=== PATIENT | female | born 1995 | race Caucasian/White ===

== ENCOUNTER 2024-08-10 00:35 | Day surgery (SDC) | payer BC, SELFPAY ==
[2024-08-06 13:30] VITALS: BMI 22.0
--- NOTE | 2024-08-06 13:37 | PC.NURSE ---
Report to the Outpatient Waiting Room, entrance under the green pavilion located off [facility], at time _1pm_ on date _[id number]_. Planned Procedure Time: _3pm_.? Time changes happen often and if your time is changed the preop area will call you the afternoon before. - You and your visitor will be asked to self-screen and do not enter if you have any COVID symptoms. Please call surgeon if you need to reschedule. - A mask is optional within the hospital at this time. Patients may have clear liquids (water, carbonated beverages, clear teas, apple juice) until 3 hours prior to surgery with a maximum of 20 ounces. - No food from midnight until time of surgery and no smoking, or chewing tobacco (or any form of nicotine). No chewing gum, candy or mints. Take only the following medications with a SIP of water on the morning of surgery: __None___ DO NOT STOP ANY OF YOUR OTHER PRESCRIPTION MEDICATIONS PRIOR TO SURGERY EXCEPT THE FOLLOWING Hold all vitamins and supplements for 3 days per anesthesiologist. Medications to discontinue per physician Date to take last dose Please no make-up, nail ecuadorean, hairspray, perfume, deodorant, or body powder the day of surgery.? No jewelry (including any body piercings) or valuables the day of surgery, leave them at home.? Please take a shower or bath the night before, or the morning of, surgery with an antibacterial soap.? Wear comfortable, loose fitting clothing. - Jewelry must be removed prior to entering the operating room.? Rings and piercings that are not removed may be cut off. - The hospital will not accept responsibility for valuables.? - Please leave all valuables, including medications, at home the day of surgery. If you are going home after surgery, a licensed route sales driver must drive you home.? - NO public transportation without another adult if you receive anesthesia. - We recommend that an adult stay with you for 24 hours following discharge. - We also recommend that you do not drive, make important decision, drink alcoholic beverages, or take any drugs that were not prescribed by your health care provider for at least 24 hours after your discharge time. Follow any additional instructions given to you from your surgeon. Telephone instructions given to __Yasmeen___and asked if any additional questions and then verbalized understanding. Patient advised to call surgeon office or pre surgery nurse liaison [phone] if any additional questions.
[2024-08-10] VITALS (8 sets, daily range): BP systolic 91–121; BP diastolic 57–86; PULSE 65–90; RESP 12–18; TEMP 36.6–37.1; O2SAT 100
--- OUTSIDE RECORDS SUMMARY | 2024-08-10 00:39 | XMS_ITS | Encounter Summary ---
Author Organization [facility] Address [address] [place] [address] Phone Care Team Providers Care Garage Door Technician Name Role Phone Jacoby Madden MD Primary Care Provider [phone] Encounter Details Date Type Department Care Team (Late st Contact Info) Description 04/02/2021 Orders Only [facility] [address] [place] [address] Scanning, Provider Social History Tobacco Use Types Packs/Day Years Used Date Smoking Tobacco: Never Smokeless Tobacco: Never Alcohol Use Standard Drinks/Week Comments Yes 0 (1 standard drink = 0.6 oz pur e alcohol) PHQ-2 Answer Date Recorded PHQ-2 Total Score (If total score is 3 or more points, staff should administer the PHQ-9) 0 04/01/2020 Comments Yes Sex and Gender Information Value Date Recorded Sex Assigned at Not on file Legal Sex Female 7:56 AM CREATIVE SPECIALIST Gender Identity Not on file Sexual Orientation Not on file 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 difficile 05/01/2021 05/01/2021 COVID: Suspected 03/09/2022 03/09/2022 03/09/2022 3:26 PM CREATIVE SPECIALIST documented as of this encounter Care Teams Garage Door Technician Relationship Specialty Start Date End Date Jacoby Madden MD PCP - General 04/23/12 documented as of this encounter
--- OUTSIDE RECORDS SUMMARY | 2024-08-10 00:39 | XMS_ITS | Continuity of Care Document ---
Author Organization [facility] Address [address] [place], [place] [address] [address] [place] [address] Phone Care Team Providers Care Procurement Professional Logistics Name Role Phone Renato Enrique MD, FACS Unavailable Unavailab le Allergies, Adverse Reactions, Alerts Substance Reaction Status Criticality No Known Allergies Active No Inform ation Procedures Procedure Date Eye Exam, New Patient Advance Directives Directive Yes / No Effective Date File Name No Information Encounters Encounter Description Practice Location Reason(s) For Visit Diagnoses Date Provider Providers Copied on Encounter [facility], [facility] [address], [place], [place], [id number], tel:[phone] [address] [place] Bump on eyelid (chief complaint) Chalazion left lower eyelid Klaus Gross. [address], [address], [place], [place], [id number], [place]. tel:[phone] Referring Provider: Nathan Oneal OD, [facility], [address]. tel:[phone] [facility], [facility] [address], [place], [place], [id number], [place] tel:[phone] [address] [place] No Information Klaus Gross. [address], [address], [place], [place], [id number], [place]. tel:[phone] Family History Family Member Type Diagnosis Age At Onset No Information Payers Payer name Insurance type Covered alliance party ID Jillian medellin(s) [employer] Out Of [place] [id number] Social History Type Description Quantity Date Captured Comments Alcohol Use Details Caffeine Use Details Tobacco Use Status Current non-smoker Smoking Status Never smoker Non-Smoking Tobacco Use Details : No Details Available : No Details Available Sex Female Chief Complaint And Reason For Visit From encounter dated '08/19/2023 11:00'. Bump on eyelid (chief complaint). Description: The 27 year old patient presents for evaluation of Bump on eyelid in the left eye. Pt referred by Dr. Nathan Oneal for possible I&D of bump LLL. Pt states has had it for several years but the past few weeks it has been hurting and the past 2 months has notice it changing in size larger and smaller. Reason For Referral Reason For Referral No Information History Of Present Illness Encounter Date Complaint History Of Prese nt Illness Bump on eyelid The 27 year old patient presents for evaluation of Bump on eyelid in the left eye. Pt referred by Dr. Nathan Oneal for possible I&D of bump LLL. Pt states has had it for several years but the past few weeks it has been hurting and the past 2 months has notice it changing in size larger and smaller. Functional Status Date Functional Assessmen t No Information Instructions Date Instruction Additional Infor lettyion Impression/Plan Related to Chala robson left lower eyelid Assessments Type Assessment Date assessment Chalazion left lower eyelid impression Chalazion left lower eyelid: H00 .15 Patient Care Teams Name Effective Dates (start - stop) Status Members No Information
--- OUTSIDE RECORDS SUMMARY | 2024-08-10 00:39 | XMS_ITS | Referral Summary ---
Author Organization [facility] [address] Address [address] [place] [address] Phone Care Team Providers Care Steam Conditioner Operator Name Role Phone Jacoby Madden MD Primary Care Provider [phone] Allergies Active Allergy Reactions Criticality Noted Date Comments Sulfa (Sulfonamide Antibiotics) Rash Medium 05/09 Medications No known medications Active Problems Problem Noted Date Diagnosed Date Chronic low back pain 09/25/2022 Assessment & Plan (10/07/2023 1:42 PM CDT): Patient has low back pain from L2-L4 mid low back area patient has gone through physical therapy still has some pain and discomfort. Pain in his daily several hours at a time. Pain is worse going from sitting to standing. Examination of the back tenderness over the paravertebral muscles L two to L5 no other findings no neurological deficits. X-rays back ordered lumbar spine series Assessment & Plan (09/25/2022 4:22 PM CDT): Patient having back pain for several months a physical therapy she is tried several techniques have not relieved her. She is seen chiropractor is not relieved her. Referring her to physical therapy for a program called mobile back program. Referred to [facility] for therapy. Other hemorrhoids 11/08/2021 Assessment & Plan (12/19/2023 9:21 AM CDT): Presents with hemorhoids on and off since the of her son 3 years ago. Has tried topical treatments with only mild relief and steroid suppositories with no relief. Notices blood speckeled stools but no jose blood or blood in the underwear. Rectal exam was deferred today (she had her son with her). Will refer to GI for possible banding or removal. Assessment & Plan (11/08/2021 9:44 AM CDT): Presents with hemorhoids on and off since the of her son 9 months ago. Has tried topical treatments with only mild relief. Notices blood speckeled stools but no jose blood or blood in the underwear. No diarrhea or constipation, no abdominal pain, vaginal, or urinary changes. Rectal exam was deferred today (she had her son with her). Will Rxd Annusol suppositories BID. Call with update in 1-2 weeks, discussed possible surgery consult at that time if symptoms do not improve. Call with any changes or concerns. Left ovarian cyst 04/15/2020 Overview (04/28/2021): CT 06/03/19 - 6.6 x 5.6 x 4.7 cm cystic structure in left hemipelvis. 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 US 07/05/20 - 7.3 cm anechoic cyst US 07/09/20 - 5 x 6.1 x 5.5 cm left ovarian cyst US 12/2020 - unremarkable adnexa Health maintenance examination 08/27/2016 Assessment & Plan (10/07/2023 1:41 PM CDT): History and physical completed patient's health risk assessment health maintenance reviewed in addressed. Current health problems of low back pain please see assessment and plan. Patient is also under stress having some family issues and she is in family court fall with her son's father. Assessment & Plan (09/25/2022 4:21 PM CDT): History and physical completed patient's health risk assessment health maintenance reviewed in addressed. She has a new health problems health problems back pain onset since her last visit with me. Please see assessment and plan Assessment & Plan (04/01/2020 10:33 AM PHOTO STYLIST): History and physical completed health risk assessment health maintenance reviewed in addressed.. Patient has a well-woman exam scheduled for this morning as well. 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 Discuss IBS symptoms she has very mild symptoms that could be related IBS. Her exam is totally benign. Patient is given information from up-to-date today regarding IBS Assessment & Plan (08/27/2016 2:24 PM CDT): This is a 20-year-old lady in no distress other history of pilonidal cyst recurrence. No laboratory studies are request. Patient will get back to me on specific needs required by the [place] documenting her immunization. Patient did had a immunization submitted to the [employer] at time of admission for undergraduate school. Patient has acne this is managed by guest history clerk. She has a follow-up visit in mid October. 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 L cheek pain worsening. Was not re-tested for COVID or FLU in office today. Likely Sinusitis, Rxd AUgmentin as directed. Use OTC meds as needed for cough. Discussed antihistamine use (zyrtec/kamille) to help dry up mucous. Tylenol/Ibuprofen as needed for pain. Increase fluids (water) Cool mist humidifier at night Use sinus rinses to help flush bacteria and help with congestion. Encouraged honey, marshmallows, or chloraseptic to help coat throat. Call with any worsening or persistent symptoms. Granulation tissue at obstet rical laceration site 07/17/2021 07/10/2023 Diarrhea 05/01/2021 11/08/2021 Assessment & Plan (05/01/2021 5:50 PM PHOTO STYLIST): Patient has had persistent diarrhea for approximately 10 days increasing in frequency. She has completed 2 rounds of antibiotics.. Patient has no fever no chills no vomiting.. She is feeling a little fatigued. Patient is given information on a brat diet advised to add Metamucil this for. Is a Metamucil from a more ribs option flu as well as bulk up stools. Patient is given Lomotil 2.5 mg t.i.d. p.r.n. 12 tablets. Progress report next 48 hours. I discussed with OB department regarding Lomotil patient's breast. No Contraindication. Choroid plexus cyst 10/07/2020 04/28/19 22 Infectious mononucleosis without complication 09/03/19 21 04/28/2021 Assessment & Plan (09/02/2020 1:24 PM CDT): Pt had positive mono-spot on 08/24. Advised plenty of rest and hydration at that time, and advised that she be off of work until she was seen again today for re- evaluation. She reports feeling better. She reports that her throat is still intermittently sore, and she has been sleeping a lot. She is also --she thinks around 15 weeks. She has an appt to see Dr. Terrazas next Saturday for her care. Throat looks improved and looks normal today on examination. Cervical lymph glands are reduced back to normal. She would like to return to work on Saturday, and I think this is fine to do. I have advised no contact sports or vigorous work out for another 4 weeks. She agrees. She will also be moving to [facility] next week, so I have advised that she sign a consent to transfer her medical records and release of information. She agrees to this. Pharyngitis 08/24/2020 10/07/2023 Assessment & Plan (07/10/2023 12:38 PM CDT): Sore throat for 1 month, see HPI for details. Mild irritation to posterior pharynx. No lesions, dental abnormalities, mass, exudates, tonsillitis/abscess, dysphagia, adenopathy, or any other acute changes on exam. Vitals stable, afebrile. Will obtain throat culture and pharyngeal culture for G/C. Will call with results. Advised patient this could just be environmental irritation or allergic in nature. Tylenol/Ibuprofen as needed for pain. Increase fluids (water) Cool mist humidifier at night Use sinus rinses to help flush bacteria and help with congestion. Encouraged honey, marshmallows, gelatin, or chloraseptic to help coat throat. Call with any worsening or persistent symptoms. Assessment & Plan (08/24/2020 10:11 AM CDT): Pt treated for strep throat back on 08/12-08/22 with PenVK. She reports that initially she did feel better and the throat pain was much improved. She c/o of throat pain since Saturday. She has a runny nose, dry cough and some ear fullness, but no fever, chills or headache. We repeated the rapid strep to ensure the infection is gone. Rapid strep = negative We will get a mono-spot today along with a CBC. I will refer to ENT for sore throat. We discussed possible differentials-- common cold, viral infection, tonsillitis, mono, sinusitis (beginning stages), acid reflux. I have recommended that she get OTC throat spray to help with the pain, along with tylenol. I have asked her to call me on Saturday if she is not improving, and she agrees. Strep throat 08/12/2020 11/08/2021 Assessment & Plan (08/12/2020 4:33 PM CDT): Rapid strep test= positive Pt is 13 weeks . Will RX pen VK 500mg TID x 10 days, as this is category B. Encouraged rest, fluids and good hand washing hygiene as not to spread to others. Maternal varicella, non-immune 08/10/2020 04/28/2021 Overview (08/10/2020): Had booster vaccine in 2017 when titers drawn for grad school. Recommend repeat . Renal stone 04/01/2020 10/07/2023 Assessment & Plan (04/01/2020 10:35 AM PHOTO STYLIST): Patient diagnosed with a renal stone at [facility] on 03/29/2020. Did follow-up with Urology at [facility]. Treatments times pain control in observation 50% chance she will need surgical intervention. Patient is comfortable at this time Pilonidal cyst 08/27/2016 04/01/2020 Assessment & Plan (08/27/2016 2:22 PM CDT): Refer to Dr. Chad Graves Acne vulgaris 08/27/2016 09/25/2022 Immunizations Immunization Administration Dates Next Due DTP 10/07/1998 DTP / HiB 11/27/1995 DTaP / HiB / IPV 02/13/1995,1994, 5 HPV, Quadrivalent 05/18/2010,01/18/2010,09/17/19 10 Hep B Vaccine 03/19/2017,10/16/2016,09/14/2016 Hep B, Adolescent or Pediatric 02/13/1995,1994,1994 Influenza, Quadrivalent, Spl it, Preservative Free, Intramuscular 01/09/2018 Influenza, Trivalent, IM (MDV) 12/24/2019 Influenza, Unspecified 12/09/2022(Deferred: Mily ent decision) MMR 09/07/2016,10/07/1998,11/27/1995 Meningococcal MCV4P (Menactra) 10/26/2014 Meningococcal Polysaccharide (Menomune) 09/09/2007 OPV 10/07/1998 PPD TEST 05/18/2019,05/11/2019 Tdap 10/13/2014,08/27/2008 Varicella 09/07/2016,10/05/2005,09/04/1995 Social History Tobacco Use Types Packs/Day Years Used Date Smoking Tobacco: Never Smokeless Tobacco: Never Tobacco Cessation:Counseling Given: Yes Alcohol Use Standard Drinks/Week Comments Yes 0 (1 standard drink = 0.6 oz pur e alcohol) PHQ-2 Answer Date Recorded PHQ-2 Total Score (If total score is 3 or more points, staff should administer the PHQ-9) 0 10/07/2023 Comments No Sex and Gender Information Value Date Recorded Sex Assigned at Not on file Legal Sex Female 7:56 AM PHOTO STYLIST Gender Identity Not on file Sexual Orientation Not on file 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 on file Not on file Not on file Last Filed Vital Signs Vital Sign Reading Time Taken Comments Blood Pressure 100/62 12/17/2023 4:01 PM CDT Pulse 72 12/17/2023 4:01 PM CDT Temperature 36.4 C (97.5 F) 12/17/2023 4:01 PM CDT Respiratory Rate 18 12/17/2023 4:01 PM CDT Oxygen Saturation 100% 12/17/2023 4:01 PM CDT Inhaled Oxygen Concentration - - Weight 58.5 kg (129 lb) 12/17/2023 4:01 PM CDT Height 165.1 cm (5' 5) 12/17/2023 4:01 PM CDT Body Mass Index 21.47 12/17/2023 4:01 PM CDT Plan of Treatment Not on file Procedures Procedure Name Priority Date/Time Associated Diagnosis Comments HIGH RISK HPV DNA DETECTION WITH GENOTYPING Routine 09/18/2023 12:04 PM CDT Screening examination for venereal disease Screening for malignant neoplasm of the cervix HEPATITIS C ANTIBODY Routine 07/13/2020 11:57 AM CDT Supervision of normal first , antepartum 9 weeks gestation of from Last 3 Months or Most Recently Relevant to Health Maintenance Results * High Risk HPV DNA Detection with Genotyping (Molecular component) (09/18/2023 12:04 PM CDT) HPV HR 16 Not Detected Not Detected [facility] Comment:Testing performed by : [facility], [address] [place]., [address] HPV HR 18 Not Detected Not Detected [facility] Comment:Testing performed by : [facility], [address] [place]., [address] HPV HR Non 16/18 Not Detected Not Detected [facility] Comment: Interpretive Data Nucleic acid amplification for detection of high-risk Human Papilloma virus (HPV) is performed by the Emmanuel Rukhsana 6800 HPV test. This assay specifically detects HPV-16 and HPV-18 genotypes. The following HPV genotypes are detected as high-risk HPV: HPV-31, 33, 35, ,39, 45, 51, 52, 56, 58, 59, 66, and 68. This assay has been approved by the [place] Food and Drug Administration for detection of HPV in cervical specimens collected by a physician using an endocervical brush/spatula or cervical broom and placed in the ThinPrep Pap Test PreservCyt collection containers. The performance characteristics of this test have been verified by the [facility] Molecular Infectious Disease laboratory. Correlate with separately reported cytology results, as applicable. Interpretive data last revised 22 Testing performed by: [facility], [address] [place]., [address] Endocervical 09/18/2023 12:0 4 PM CDT 09/19/2023 4:50 PM CDT [facility] - 09/19/2023 11:23 PM CDT Clinical history and diagnosis->network pap with HR HPV GC/CT Z11.3 Z12.4 negative pap 04/2020 Number of vials->1 Testing type->Screening Last menstrual period (date if known)->08/14/23 Clara Terrazas MD LAB BODY FLUIDS AND S TOOLS ORDERABLES Final Result [facility] [address] Department [place] [address] [facility] * Hepatitis C antibody (07/13/2020 11:57 AM CDT) Hep C Ab Nonreactive Nonreactive [facility] Comment: Interpretive Data Nonreactive: Antibodies to HCV not detected. Does NOT exclude the possibility of recent exposure to HCV. Equivocal: Equivocal for HCV antibodies. Supplemental molecular testing will be automatically performed to determine infection status in accordance with current CDC screening recommendations. Reactive: Positive for HCV antibodies. This may represent current or past HCV infection. Supplemental molecular testing will be automatically performed to determine current infection status in accordance with current CDC screening recommendations. Interpretive data was last revised on 2019. Blood specimen (specimen) 07/13/2020 11:57 AM CDT 07/13/2020 4:18 PM CDT us Clara Terrazas MD LAB MICROBIOL OGY - GENERAL ORDERABLES [place] [address] [address] Department [place] [address] from Last 3 Months or Most Recently Relevant to Health Maintenance Additional Health Concerns Infection Onset Date Last Indicated C. difficile 05/01/2021 05/01/2021 Insurance [employer] Care Teams Steam Conditioner Operator Relationship Specialty Start Date End Date Jacoby Madden MD PCP - General 04/23/12
--- OUTSIDE RECORDS SUMMARY | 2024-08-10 00:39 | XMS_ITS | Clinical Summary ---
Author Organization [facility] Address [address] [place] [address] Phone Care Team Providers Care Roving Frame Tender Name Role Phone Jacoby Madden MD Primary Care Provider Allergies Active Allergy Reactions Criticality Noted Date Comments Hydrocodone-Acetaminophen Hives,Vomiting 2020 Medications Magnesium 200 MG Tablet Take 200 mg by mouth. Active Crowder-3 1000 MG Capsule Take 1,000 mg by mouth. Active Immunizations Immunization Administration Dates Next Due DTP Vaccine 10/07/1998 DTP-Hib 11/27/1995 Hepatitis B Vaccine 03/19/2017,10/16/2016,2016 Hepatitis B Vaccine, Pediatric/adolescent 1994,1994 Human Papillomavirus Vaccine (HPV), quadrivalent 05/18/2010,01/18/2010,09/16/2009 Influenza Vaccine greater than 3 yrs 12/24/2019 Influenza Vaccine, Quadrivalent, PF 01/09/2018 Meningococcal Vaccine 10/26/2014 OPV 10/07/1998 TDAP Vaccine 10/13/2014 Tuberculin Skin Test; Purifi ed Protein Derivative Solutiol 05/18/2019,05/11/2019 Social History Tobacco Use Types Packs/Day Years Used Date Smoking Tobacco: Never Smokeless Tobacco: Never Alcohol Use Standard Drinks/Week Comments Not Currently 0 (1 standard drink = 0.6 oz pur e alcohol) PHQ-2 Answer Date Recorded Total Score - Questions 1-9 1 10/10 Sexually Active Control Partners Comments Yes Male Comments No Sex and Gender Information Value Date Recorded Sex Assigned at Not on file Legal Sex Female 9:08 AM PERMIT TECHNICIAN Gender Identity Not on file Sexual Orientation Not on file Last Filed Vital Signs Vital Sign Reading Time Taken Comments Blood Pressure 100/62 05/02/2020 9:15 AM PERMIT TECHNICIAN Pulse 81 05/02/2020 9:15 AM PERMIT TECHNICIAN Temperature 36.7 C (98 F) 05/02/2020 9:15 AM PERMIT TECHNICIAN Respiratory Rate 16 03/31/2020 11:07 AM PERMIT TECHNICIAN Oxygen Saturation 98% 05/02/2020 9:15 AM PERMIT TECHNICIAN Inhaled Oxygen Concentration - - Weight 53.7 kg (118 lb 6.4 oz) 05/02/2020 9:15 A M PERMIT TECHNICIAN Height 165.1 cm (5' 5) 05/02/2020 9:15 AM PERMIT TECHNICIAN Body Mass Index 19.7 05/02/2020 9:15 AM PERMIT TECHNICIAN Plan of Treatment Health Maintenance Due Date Last Done Comments Hepatitis C Virus (HCV) Screening 1995 Pap Smear 08/31/2015 SARS-COV-2 Immunization ( season) 2023 Influenza Immunization (Season Ended) 2024 12/24/2019, 01/09/2018 Respiratory Syncytial Virus (RSV) Immunization (Adult) (1 - 1-dose 75+ series) 2069 Human Papillomavirus (HPV) Immunization Completed 05/18/2010, 01/18/2010, 09/16/2009 DTaP/Tdap/Td Immunization Discontinued 2014, 10/07/1998, 11/27/1995 Meningococcal Immunization (ACWY) Aged Out 10/26/2014 No longer eligible based on patient's age to complete this topic Hepatitis B Immunization Completed 018, 10/16/2016, 09/14/2016, Additional history exists Pneumococcal Immunization Combined Aged Out No longer eligible based on patient's age to complete this topic Rotavirus Immunization Aged Out No lo nger eligible based on patient's age to complete this topic Insurance [facility] Care Teams Roving Frame Tender Relationship Specialty Start Date End Date Jacoby Madden MD [address] [place] [address] PCP - General Internal Medicine 03/30/20
--- OUTSIDE RECORDS SUMMARY | 2024-08-10 00:39 | XMS_ITS | Clinical Summary ---
Author Organization [facility] [address] Address [address] [place] [address] Phone Care Team Providers Care Billet Shearer Name Role Phone Jacoby Madden MD Primary Care Provider [phone] Allergies Active Allergy Reactions Criticality Noted Date [...] program called mobile back program. Referred to [facility] for therapy. Other hemorrhoids 11/08/2021 Assessment & [...] plan Assessment & Plan (04/01/2020 10:33 AM TRANSFILL TECHNICIAN): History and physical completed health risk assessment [...] me on specific needs required by the [employer] documenting her immunization. Patient did had a immunization submitted to the [employer] at time of admission for undergraduate school. Patient has acne this is managed by production superintendent. She has a follow-up visit in mid October. 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 L cheek [...] 11/08/2021 Assessment & Plan (05/01/2021 5:50 PM TRANSFILL TECHNICIAN): Patient has had persistent diarrhea for approximately [...] agrees. She will also be moving to [facility] next week, so I have advised [...] 10/07/2023 Assessment & Plan (04/01/2020 10:35 AM TRANSFILL TECHNICIAN): Patient diagnosed with a renal stone at [facility] on 03/29/2020. Did follow-up with Urology at [facility]. Treatments times pain control in observation 50% [...] PPD TEST 05/18/2019,05/11/2019 Tdap 10/13/2014,08/27/2008 Varicella 09/07/2016,10/05/2005,09/04/1995 Surgical History Surgery Date Site/Laterality Comments PILONIDAL CYSTECTOMY 03/11/2012 - 03/10/2013 Medical History Medical History Date Comments Kidney stone 03/2020 Dr. 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 cytotec for atony. [facility] in [place], [place]. Last Filed Vital Signs Vital Sign Reading [...] 12/17/2023 4:01 PM CDT Plan of Treatment Health Maintenance Due Date Last Done Comments Cervical Cancer Screening 09/17/20242023, 09/18/2023, 04/14/2020 Depression Screening 10/06/2024 10/07/2023, 09/24/2022, 04/01/2020, Additional history exists Regular Well Visit/Exam 18-64 10/06/2024 10/07/2023, 09/18/2023, 09/24/2022, Additional history exists DTaP/Tdap/Td Vaccine (8 - Td or Tdap) 10/13/2024 10/13/2014, 08/27/2008, 10/07/1998, Additional history exists Influenza Vaccine (Season Ended) 2024 12/24/2019, 01/09/2018 HPV Vaccines Completed 05/18/2010, 01/09, 09/16/2009 Varicella Vaccines Completed 09/07/2016, 0 10/05/2005, 09/04/1995 Hepatitis B Screening Completed 03/19/2017 , 10/16/2016, 09/14/2016, Additional history exists Hepatitis C Screening Completed 07/13/2020 Pneumococcal vaccine <65 Aged Out No longer eligible based on patient's age to complete this topic Procedures Procedure Name Priority Date/Time Associated Diagnosis [...] HPV HR 16 Not Detected Not Detected [facility] Comment:Testing performed by : [facility], [address] [place]., [address] HPV HR 18 Not Detected Not Detected [facility] Comment:Testing performed by : [facility], [address] [place]., [address] HPV HR Non 16/18 Not Detected Not [...] this test have been verified by the [facility] Molecular Infectious Disease laboratory. Correlate with separately reported cytology results, as applicable. Interpretive data last revised 22 Testing performed by: [facility], [address] [place]., [address] Endocervical 09/18/2023 12:0 4 PM CDT 09/19/2023 4:50 PM CDT Narrative [facility] - 09/19/2023 11:23 PM CDT Clinical history and diagnosis->network pap with HR HPV GC/CT Z11.3 Z12.4 negative pap 04/2020 Number of vials->1 Testing type->Screening Last menstrual period (date if known)->08/14/23 Clara Terrazas MD LAB BODY FLUIDS AND S TOOLS ORDERABLES Final Result [facility] [address] Department [place] [address] [facility] * Hepatitis C antibody (07/13/2020 11:57 AM CDT) Hep C Ab Nonreactive Nonreactive [facility] Comment: Interpretive Data Nonreactive: Antibodies to HCV [...] GENERAL ORDERABLES Edited Result - Final [facility] [address] [facility] Department [place] [address] from Last 3 Months or Most Recently Relevant to Health Maintenance Additional Health Concerns Infection Onset Date Last Indicated C. difficile 05/01/2021 05/01/2021 Insurance Booster OOS Care Teams Billet Shearer Relationship Specialty Start Date End Date Jacoby Madden MD PCP - General 04/23/12
--- OUTSIDE RECORDS SUMMARY | 2024-08-10 00:39 | XMS_ITS | Encounter Summary ---
Author Organization [facility] Address [address] [place] [address] Phone Care Team Providers Care Helminthology Teacher Name Role Phone Jacoby Madden MD Primary Care Provider [phone]- [phone] Encounter Details Date Type Department Care Team (Late st Contact Info) Description 07/09/2020 Orders Only [facility] [address] [place] [address] Scanning, Provider Social History Tobacco Use Types Packs/Day Years Used Date Smoking Tobacco: Never Smokeless Tobacco: Never Alcohol Use Standard Drinks/Week Comments Yes 0 (1 standard drink = 0.6 oz pur e alcohol) PHQ-2 Answer Date Recorded PHQ-2 Total Score (If total score is 3 or more points, staff should administer the PHQ-9) 0 04/01/2020 Comments No Sex and Gender Information Value Date Recorded Sex Assigned at Not on file Legal Sex Female 7:56 AM ER NURSE Gender Identity Not on file Sexual Orientation Not on file 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 difficile 05/01/2021 05/01/2021 COVID: Suspected 03/09/2022 03/09/2022 03/09/2022 3:26 PM ER NURSE documented as of this encounter Care Teams Helminthology Teacher Relationship Specialty Start Date End Date Jacoby Madden MD PCP - General 04/23/12 documented as of this encounter
--- NOTE | 2024-08-10 12:09 | WPDHPUPDATE1 ---
History and Physical Update Update Date/Time: 08/10/24 12:09 History and Physical has been reviewed, including an updated exam of the patient. There are NO changes in the patient's condition. Risks, benefits, and alternatives have been discussed and questions answered. Patient agrees to proceed with procedure.
[2024-08-10] MEDS: ACETAMINOPHEN 500 MG TABLET 1000 MG PO (13:58)
[2024-08-10] MEDS: LACTATED RINGERS 1,000 ML 30 ML IV CONT ×2 (14:05→16:26)
[2024-08-10 14:11] LABS: BEDSIDEPREGUCG Negative (Negative)
--- NOTE | 2024-08-10 15:27 | P.PNAN_ITS ---
Anes - Initial Pre Proc Eval Procedure: Operation Date: 08/10/24 15:00 Proposed Procedures p Tonsillectomy And Adenoidectomy - Brent Melendez MD Date/Time: 08/10/24 15:27 Surgeon: Brent Melendez MD Pre Op Diagnosis: acute pharyngitis, snoring, hypertrophy&acute ton Patient Data Age: 28 Gender: F Height: 1.65 m Weight: 59.05 kg Last Vital Signs Temp 37.1 C 08/10/24 13:13 Pulse 74 08/10/24 13:13 Resp 18 08/10/24 13:13 BP 105/62 08/10/24 13:13 Pulse Ox 100 08/10/24 13:13 O2 Del Method Room Air 08/10/24 13:13 Allergies Allergy/AdvReac Type Severity Reaction Status Date / Time No Known Allergies Allergy Unverified 08/10/24 13:33 Home Medications ?Medication ?Instructions ?Recorded ?Confirmed ?Type No Home Medications 10/03/22 08/06/24 History Laboratory Tests 08/10/24 13:20 POC Urine HCG, Qual Negative (Negative) Patient hx anesthesia problems: none Family hx anesthesia problems: none Results Review: All pre-operative results and documents have been reviewed as part of the pre- operative evaluation. [facility] Past Medical History Medical History (Updated 08/10/24 @ 15:27 by Chad Calvert MD) Adenoid hypertrophy Recurrent tonsillitis Social History Social History Smoking status: Never smoker Alcohol intake: current Lack of Transportation: No Lack of Food: Never True Current Housing: I Have Housing Concerned About Future Housing: No Difficulty Paying Gas/Electric Bills: No Difficulty Paying for Meds: No Currently Unemployed: No Education: Master's Degree or Higher Difficulty w/ Childcare or Family Care: No Living arrangements: alone Spiritual care concerns: No Anes - Eval Final PreProcedure Day of Procedure 08/10/24 15:27 Patient weight: normal Heart: regular rate and rhythm Lungs: clear to auscultation Airway: Mallampati scale class 1 Neurological: alert and oriented Last oral intake: >/= 8 hours ASA classification: I Emergent: no Anesthetic plan: proceed Anesthesia type and monitoring: general ETT and standard monitoring Results Review: All pre-operative results and documents have been reviewed as part of the pre- operative evaluation. Informed Consent: The patient's anesthetic plan and its attendant risks and benefits were discussed with the patient/family/POA. Questions were solicited and answers provided to the satisfaction of the patient/family/POA.
--- NOTE | 2024-08-10 16:00 | S_PTH ---
PATIENT: Yasmeen Spears LOC: [facility] U#:[id number] AGE/SX: 28/F ROOM: RE08/10/[address]: Brent Melendez MD : 1995 BED: DIS: 08/10/2024 SPEC #: [id number] RECD: 08/11/24 07:42 STATUS: EMILY BLANCO #: [id number] MARCIO: 08/10/24 16:[address]: Brent Melendez DEPT: [facility] Surgical RECD BY: Yvonne Paul ENTERED: 08/11/24 07:42 SP TYPE: Surgical OTHR DR: Jacoby MaddenMD Tissues: A - Tonsil NOS Procedures: Hematoxylin and Eosin Stain Gross and Microscopic Level 3
[2024-08-10] MEDS: fentaNYL CITRATE INJ (*CRX) 100 MCG/2 ML VIAL 25 MCG IV PUSH ×4 (16:43→17:06)
--- NOTE | 2024-08-10 17:04 | W.PM.PROC2 ---
Procedure Note - Detailed Date of Procedure 08/10/24 Pre-op Diagnosis acute pharyngitis, snoring, hypertrophy&acute ton Post-op Diagnosis Same Procedure Performed Tonsillectomy Surgeon Brent Melendez MD Anesthesia General Indications See above Findings Incredibly scarred and cryptic tonsils filled with stones. Minimal bleeding Description of Procedure Patient consent was verified patient identified in the preoperative holding area. Patient brought to the operating room. Time-out performed. General anesthesia induced endotracheal tube secured airway. Patient prepped draped position procedure confirmed 2nd time-out performed McIvor mouth gag inserted to reveal incredibly large cryptic tonsils they were removed bilaterally extracapsular plane using Coblator setting of medium medium I minimal bleeding about 1 cc throughout in-between tonsils McIvor mouth gag was lowered and reopened to allow blood flow to return to the tongue. The end of the procedure red rubber catheters were placed transnasally the adenoids reviewed they were centrally non-existent. Red rubber catheters removed McIvor mouth gag removed. Care the patient given Anesthesiology. I performed all dictated portions of procedure there were no complications patient taken to PACU. Blood loss 1 cc. Estimated Blood Loss 1 Drains No Pathology Yes Complications No immediate complications Condition Stable Disposition PACU [facility] Billing Surgery - Charge Forward: Surgery Billing
--- NOTE | 2024-08-10 17:12 | SUR.PHASEI ---
1710 - dr. kim talking with pt
[2024-08-10] MEDS: oxyCODONE HCL (*CRX) 5 MG TAB IR PO (17:35)
[2024-08-10] MEDS: ONDANSETRON INJ 4 MG/2 ML VIAL IV PUSH (18:05)
== END 2024-08-10 18:41 | disposition home or self-care (01) ==
PROVIDERS: PCP Internal Medicine; Visit Provider Otolaryngology
PROC: (CPT 42826; principal; 2024-08-10 15:00)
DX: J35.01 Chronic tonsillitis (principal); G89.18 Other acute postprocedural pain; R06.83 Snoring
CPT/HCPCS: 42826; 88304; A9270; J0330; J1100; J2250; J2405; J2704; J3010; J7120